=== PATIENT | female | born 1940 | race Caucasian/White ===

== ENCOUNTER 2018-01-21 10:53 | Day surgery (SDC) | payer OTHER ==
[~2018-01-21 10:53] MED LIST: COUM5TAB; LANO0.2510; SPIRCAP; TOPR25TA2; WARF2.5
[2018-01-21] MEDS ORDERED: METOPROLOL TARTRATE 25 MG TAB PO PRN (11:45)
[2018-01-21] MEDS ORDERED: POVIDONE IODINE 5% (ANTISEPSIS KIT) 4 APPLICATIONS EACH NARE PRN (11:45)
[2018-01-21] MEDS ORDERED: LACTATED RINGER'S 1000 ML IV PRN (11:45)
[2018-01-21] MEDS ORDERED: SODIUM CHLORID 0.9% 500 ML IV PRN (11:45)
[2018-01-21] MEDS ORDERED: CHLORHEXIDINE GLUCONATE 2 % 1 PACK (2 CLOTHS) TOPICAL PRN (11:45)
[2018-01-21] MEDS ORDERED: FURO20TA PO (11:56)
[2018-01-21] MEDS ORDERED: WARF4TAB51 PO (11:56)
[2018-01-21] MEDS ORDERED: AMIO200T PO (11:56)
[2018-01-21] MEDS ORDERED: METO25TA3 PO (11:56)
[2018-01-21] MEDS ORDERED: K-TA10TA PO (11:56)
[2018-01-21] MEDS ORDERED: LEVO50TA4 PO (11:56)
[2018-01-21] MEDS ORDERED: CALC12502 PO (11:56)
[2018-01-21] MEDS ORDERED: ALBUAER3 INH (11:56)
[2018-01-21] MEDS ORDERED: FOSA70TA PO (11:56)
[2018-01-21] MEDS ORDERED: CART120C PO (11:56)
[2018-01-21] MEDS ORDERED: MULT-65 PO (11:56)
[2018-01-21] MEDS ORDERED: AMOX500C PO (11:56)
[2018-01-21] MEDS ORDERED: HYDR-3516 PO (11:56)
[2018-01-21] MEDS ORDERED: LIDOCAINE HCL 1% 50 ML VIAL ONE (14:22)
[2018-01-21] MEDS ORDERED: MIDAZOLAM HCL 2 MG/2 ML VIAL ONE (14:52)
--- NOTE | 2018-01-21 16:15 | CF ---
cc: Anais Rea MD, Rizalina DATE: 01/21/2018 INDICATION: 1. 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 2. Atrial fibrillation. 3. On anticoagulation. 4. Rule out left atrial appendage thrombus. PROCEDURAL STATEMENT: The patient was prepped and draped in the usual manner. The patient was anesthetized by the anesthesia department with Diprivan. A full DAWIT was performed. FINDINGS: The left atrial appendage is free of thrombus. There was evidence of a mechanical mitral valve with trace mitral regurgitation. There was severe tricuspid regurgitation. Tricuspid valve moves normally. Pulmonary valve looked normal. Aortic valve is trileaflet and moves normal. The aorta had some moderate calcification, but no dissection or thrombus. CONCLUSION: No evidence of left atrial appendage thrombus. Severe tricuspid regurgitation. Mild mitral regurgitation. PLAN: Proceed with cardioversion. Anais Rea MD HAJ/TL , 02:40 PM , 03:02 PM
--- NOTE | 2018-01-21 16:15 | MR ---
cc: Anais Rea MD DATE: 01/21/2018 PROCEDURE PERFORMED: Cardioversion. INDICATION: Atrial fibrillation with symptoms. CONSENT: Full informed consent was obtained prior to the procedure. The risk of , aspiration, perforation, cardiac arrest, infection and endocarditis, foreseen and unforeseen complications were reviewed. The patient fully appeared to understand these risks. PROCEDURAL STATEMENT: The patient was draped and prepped in usual manner. Following a full DAWIT as outlined elsewhere, the patient underwent cardioversion with 200 joule direct current synchronized shock. The patient converted to sinus rhythm. CONCLUSION: Successful cardioversion to sinus rhythm. Anais Rea MD HAJ/TL , 02:41 PM , 03:05 PM
--- NOTE | 2018-01-22 19:14 | EKG ---
Date Performed: 01/21/2018 Time Performed: 12:02:30 PTAGE: 77 years EKG: Atrial fibrillation. Possible septal infarct - age undetermined Abnormal ECG when compared to prior EKG, patient is now in atrial fibrillation PREVIOUS TRACING : 11/29/2007 07.02 DOCTOR: Xochitl Graves Interpretating Date/Time 01/22/2018 19:12:36
--- NOTE | 2018-01-22 19:14 | EKG ---
Date Performed: 01/21/2018 Time Performed: 14:54:08 PTAGE: 77 years EKG: Sinus bradycardia with sinus arrhythmia. Prolonged QT interval Poor R wave progression - pr obable normal variant Borderline ECG when compared to prior EKG, patient is back in sinus rythm PREVIOUS TRACING : 01/21/2018 12.02 DOCTOR: Xochitl Graves Interpretating Date/Time 01/22/2018 19:15:14
== END 2018-01-21 15:36 | disposition home or self-care (01) ==
LOC: HDOC 10:53 → HDIC 10:54 → HDOC 15:36
PROVIDERS: ATTEND Internal Medicine Cardiovascular Disease
DX: I48.91 Unspecified atrial fibrillation (principal); I48.92 Unspecified atrial flutter; I05.0 Rheumatic mitral stenosis; I10 Essential (primary) hypertension; Z95.4 Presence of other heart-valve replacement; Z79.01 Long term (current) use of anticoagulants; Z87.891 Personal history of nicotine dependence
CPT/HCPCS: 00410; 92960; 93005; 93312; 93320; 93325; J2250